=== PATIENT | female | born 1950 | race Caucasian/White ===

== ENCOUNTER 2017-05-22 13:16 | Emergency (ER) | payer BC ==
--- NOTE | 2017-05-22 15:20 | ED ---
Back Pain - HPI Summary HPI Summary: 67 yr old female with the complaint of low back pain. Onset of pain 05/19 without any trauma or falls. Pain is 6/10, worse with position change, and located in low back going into her buttock are and the pelvis. She is concerned she could have a kidney stone, but no prior history of such. She denies bowel or bladder incontinence. Denies numbness or weakness in the legs. She has no other complaint.s - History of Current Complaint Chief Complaint: UCBackPain Stated Complaint: LOWER BACK/DUYEN RIB AREA PAIN Time Seen by Provider: 05/22/17 14:47 Hx Last Menstrual Period: n/a - Allergies/Home Medications Allergies/Adverse Reactions: Allergies Allergy/AdvReac Type Severity Reaction Status Date / Time No Known Allergies Allergy Verified 05/22/17 14:13 Home Medications: Home Medications Ibuprofen TAB* [Motrin TAB* 600 MG] 400 mg PO BEDTIME PRN 05/22/17 [History Confirmed 05/22/17] Metronidazole [Flagyl 500 MG TAB] 500 mg PO BID 05/22/17 [History Confirmed ] PMH/Surg Hx/FS Hx/Imm Hx Cardiovascular History: Reports: Hx Hypertension Respiratory History: Reports: Hx Chronic Obstructive Pulmonary Disease (COPD) - emphysema - Surgical History Surgery Procedure, Year, and Place: breast aspirations x 2 Infectious Disease History: No Infectious Disease History: Denies: Traveled Outside the [place] in Last 30 Days - Social History Alcohol Use: Daily Alcohol Amount: 2 daily Substance Use Type: Reports: None Smoking Status (MU): Former Smoker Type: Cigarettes Amount Used/How Often: ~1 PPD Length of Time of Smoking/Using Tobacco: 42 Years Have You Smoked in the Last Year: Yes Review of Systems Positive: flank pain All Other Systems Reviewed And Are Negative: Yes Physical Exam Triage Information Reviewed: Yes Vital Signs On Initial Exam: Initial Vitals Temp Pulse Resp BP 98.8 F 61 18 125/54 05/22/17 13:52 05/22/17 13:52 05/22/17 13:52 05/22/17 13:52 Vital Signs Reviewed: Yes Appearance: Positive: Well-Appearing, No Pain Distress Skin: Positive: Warm Head/Face: Positive: Normal Head/Face Inspection Eyes: Positive: EOMI Neck: Positive: Nontender Respiratory/Lung Sounds: Positive: Clear to Auscultation, Breath Sounds Present Cardiovascular: Positive: RRR. Negative: Murmur Abdomen Description: Positive: Nontender. Negative: CVA Tenderness (R), CVA Tenderness (L) Musculoskeletal: Positive: Strength/ROM Intact Neurological: Positive: Sensory/Motor Intact, Alert, Oriented to Person Place, Time, CN Intact II-III Psychiatric: Positive: Normal - Avel Coma Scale Best Eye Response: 4 - Spontaneous Best Motor Response: 6 - Obeys Commands Best Verbal Response: 5 - Oriented Diagnostics - Vital Signs Vital Signs Temp Pulse Resp BP 05/22/17 13:52 98.8 F 61 18 125/54 - Laboratory Lab Results: Lab Results 05/22/17 Range/Units 13:59 POC Urine Color Yellow POC Urine Clarity Clear POC Urine pH 5.0 (5-9) POC Ur Specif Kimball 1.025 (1.010-1.030) POC Urine Protein Negative (Negative) POC Ur Glucose (UA) Negative (Negative) POC Urine Ketones Negative (Negative) POC Urine Blood 1+ H (Negative) POC Urine Nitrite Negative (Negative) POC Urine Bilirubin Negative (Negative) POC Urine Urobilinogen 0.2 (Negative) POC U Leukocyte Esteras Trace H (Negative) Lab Statement: Any lab studies that have been ordered have been reviewed, and results considered in the medical decision making process. Back Pain Course/Dx - Course Course Of Treatment: 67 yr old with unremakable CT scan, but has hint of UTI by her UA here. Will Rx with macrobid, culture sent. She has musculoskeletal component to back pain. Recommend FU with PMD for possible outpatient MRI. - Diagnoses Provider Diagnoses: Back pain, UTI (urinary tract infection) Discharge - Discharge Plan Condition: Good Disposition: HOME Prescriptions: Nitrofurantoin Monohyd Macro [Macrobid] 100 mg PO BID #14 cap Patient Education Materials: Back Pain (ED), Urinary Tract Infection in Women ( ED) Referrals: Mandy Naranjo NP [Primary Care Provider] -
[2017-05-22 15:28] VITALS: BP 125/61
--- NOTE | 2017-05-22 15:54 | RAD ---
Indication: Back pain, flank pain. CT of the abdomen and pelvis was performed without oral or IV contrast administration. Coronal and sagittal reconstructed images were obtained. Lung bases demonstrate no pleural fluid, nodules or masses. Heart is of normal size without evidence of pericardial effusion. Liver is normal in size. No focal lesions or intrahepatic ductal dilatation is noted. Gallbladder demonstrates no calcified gallstones. No pericholecystic fluid or wall thickening is identified. The spleen is normal in size. The pancreas demonstrates no mass or pancreatic duct dilatation. Common duct is not dilated. No adrenal lesions are noted. Left Adrenal hyperplasia is noted. No hydronephrosis is noted. No retroperitoneal lymphadenopathy is noted. The appendix is visualized and is normal. No dilated loops of bowel are noted. CT of the pelvis demonstrates no retroperitoneal or pelvic lymphadenopathy. The bladder is otherwise unremarkable. IMPRESSION: No abnormal masses or fluid collections are identified. Normal appendix no abnormal fluid collections are identified. No obstructive uropathy is noted.
== END 2017-05-22 16:40 | disposition home or self-care (01) ==
LOC: UCCORT 13:16
DX: M54.5 Low back pain (principal); N39.0 Urinary tract infection, site not specified; Z87.891 Personal history of nicotine dependence
CPT/HCPCS: 74176; 81003; 87086; 99212; G0463